=== PATIENT | male | born 1995 ===

== ENCOUNTER 2017-11-05 21:22 | Emergency (ER) | payer BC ==
[2017-11-05 21:38] VITALS: BP 141/86
[2017-11-05] MEDS ORDERED: HYDROcodone/ACETAMIN 5-325 MG* 1 TAB PO ONE (22:56)
--- NOTE | 2017-11-05 22:59 | UC ---
Hand/Wrist HPI - HPI Summary HPI Summary: Patient is 21 year old male , without any significant past medical history who present today with right middle finger injury today. He was playing flag foot ball when his finger jot jammed. After which he came in for evaluation. FInger is twisted and painful . No other symptoms. - History Of Current Complaint Chief Complaint: UCUpperExtremity Stated Complaint: FINGER INJURY Time Seen by Provider: 11/05/17 22:33 Hx Obtained From: Patient Pain Intensity: 4 - Allergies/Home Medications Allergies/Adverse Reactions: Allergies Allergy/AdvReac Type Severity Reaction Status Date / Time No Known Allergies Allergy Verified 11/05/17 21:38 Home Medications: Home Medications NK [No Home Medications Reported] 11/05/17 [History Confirmed 11/05/17] PMH/Surg Hx/FS Hx/Imm Hx Previously Healthy: Yes Other Endocrine History: negative Other Cardiovascular History: negative Other Respiratory History: negative Other GI/ History: negative Other Neurological History: negative Other Psychological History: negative Other Cancer History: negative - Surgical History Surgical History: Yes Surgery Procedure, Year, and Place: cyst removal, mole removal - Family History Known Family History: Positive: Hypertension - Social History Alcohol Use: Weekly Alcohol Amount: 3/WEEK Substance Use Type: None Smoking Status (MU): Never Smoked Tobacco Have You Smoked in the Last Year: No Review of Systems Constitutional: Negative Skin: Negative Eyes: Negative ENT: Negative Respiratory: Negative Cardiovascular: Negative Gastrointestinal: Negative Genitourinary: Negative Motor: Negative Neurovascular: Negative Musculoskeletal: Decreased ROM - right 3rd middle finger, Edema - right 3rd middle finger, Other: - pain in middle phalanx of the right 3rd middle finger Neurological: Negative Psychological: Negative Is Patient Immunocompromised?: No All Other Systems Reviewed And Are Negative: Yes Physical Exam - Summary Physical Exam Summary: Physical Exam: Const: Appears well. No signs of apparent distress present. Alert and oriented x 3. Musculo: Walks with a normal gait. middle phalanx of the right 3rd middle finger: twisted /malrotation , tender to palpate at the middle phalanx. limited and painful ROM . Wrist is normal Head/Face: Atraumatic, normocephalic on inspection. Eyes: EOMI and PERRLA in both eyes. Conjunctivae clear. No discharge noted ENT: Hearing normal, TM normal appearing bilaterally . Respiratory: Respirations are unlabored. Lungs clear to auscultation bilaterally, no wheezing , rhonchi or rales noted . CVS: Regular rate and Rhythm, S1S2 normal , no murmurs identified. Extremities: Peripheral circulation is grossly normal. Pulses 2+ Abdomen : Soft non tender , nondistended , Bowel sounds present . No guarding , rebound tenderness or rigidity noted. Skin: No lesions or rash located on the upper extremities or on the lower extremities. Neuro: Cranial nerves II to XII intact, motor and sensory intact. DTR Intact bilaterally. Mood is normal. Affect is normal. Triage Information Reviewed: Yes Vital Signs: Initial Vital Signs Temp 99.1 F 11/05/17 21:34 Pulse 66 11/05/17 21:34 Resp 21 11/05/17 21:34 BP 141/86 11/05/17 21:34 Pulse Ox 96 11/05/17 21:34 Vital Signs Reviewed: Yes Diagnostics - Radiology hand Xray Interpretation: Positive (See Comments) - Communited / spiral fracture of the middle phalanx of the right 3rd middle finger Radiology Interpretation Completed By: ED Physician Hand/Wrist Course/Dx - Course Course Of Treatment: During the visit today, we obtained X-rays of the right middle finger which demonstrated a spiral/comminuted fracture of the middle phalanx( final report not available yet) . We discussed the findings and further plan. Splint applied to the finger. He was gven 1 dose of norco for pain control .He will see the hand surgeon/orthopedics tomorrow. Patient expressed understanding . - Differential Dx/Diagnosis Provider Diagnoses: Right middle finger fracture Discharge - Sign-Out/Discharge Documenting (check all that apply): Patient Departure All imaging exams completed and their final reports reviewed: No - Discharge Plan Condition: Stable Disposition: HOME Patient Education Materials: Finger Fracture (ED) Referrals: Koby Sun MD [Primary Care Provider] - Clem Perkins MD [Medical Doctor] - 1 Day Additional Instructions: Pain control as needed . Please follow up with orthopedics/hand surgeon tomorrow. Return to Urgent care / ER if symptoms get worse. - Billing Disposition and Condition Condition: STABLE Disposition: Home
--- NOTE | 2017-11-06 07:55 | RAD ---
Indication: Right middle finger pain. 3 views of the right middle finger demonstrates comminuted spiral fracture of the middle phalanx. Soft tissue swelling is noted. IMPRESSION: Spiral fracture middle phalanx third digit.
--- NOTE | 2017-11-06 08:52 | UC ---
- EKG/XRAY/CT XRAY: finger Xray Comments: wet read correct Discharge - Sign-Out/Discharge Documenting (check all that apply): Post-Discharge Follow Up All imaging exams completed and their final reports reviewed: Yes - Discharge Plan Condition: Stable Disposition: HOME Patient Education Materials: Finger Fracture (ED) Referrals: Koby Sun MD [Primary Care Provider] - Clem Perkins MD [Medical Doctor] - 1 Day Additional Instructions: Pain control as needed . Please follow up with orthopedics/hand surgeon tomorrow. Return to Urgent care / ER if symptoms get worse. - Billing Disposition and Condition Condition: STABLE Disposition: Home
== END 2017-11-05 23:10 | disposition home or self-care (01) ==
LOC: UCEAST 21:22
DX: S62.652A Nondisplaced fracture of middle phalanx of right middle finger, initial encounter for closed fracture (principal); W23.0XXA Caught, crushed, jammed, or pinched between moving objects, initial encounter; Y93.61 Activity, american tackle football; Y92.9 Unspecified place or not applicable
CPT/HCPCS: 73140; 99212; G0463

== ENCOUNTER → 2017-11-09 15:13 | Day surgery (SDC) | payer BC ==
[~2017-11-09 15:13] MED LIST: Buffered Lidocaine 0.9% SYRIN* 5 ML/SYR SYRINGE INTRADERM ONE; Dexamethasone IV* 4 MG/ML 1 ML (4 MG) IV SLOW PU ONE; Dexamethasone IV* 4 MG/ML 1 ML (4 MG) ONE; Famotidine IV* 10 MG/ML 2 ML (20 mg) IV ONE; Famotidine IV* 10 MG/ML 2 ML (20 mg) ONE; Midazolam* 1 MG/ML 2 ML VIAL (2 MG) ONE; ceFAZolin 2 GM in NS PREMIX(*) 2 GM/100 ML BAG IVPB ONE; fentaNYL* 50 MCG/ML 2 ML VIAL (100 MCG VIAL) ONE
[2017-11-10 07:00] VITALS: BP 129/84
--- NOTE | 2017-11-10 14:25 | RAD ---
INDICATION: ORIF RIGHT middle finger middle phalanx. Technique: 33 seconds of?fluoroscopy?was provided?for the physician proceduralist. REPORT: Spot images document placement of percutaneous fixation wires across the oblique nonarticular fracture of the middle phalanx. Anatomic alignment. IMPRESSION: Procedural control films. CPT II Codes: G9500
--- NOTE | 2017-11-10 15:11 | OP ---
DATE OF OPERATION: 11/09/17 - [facility] DATE OF : [birth year] SURGEON: Clem Perkins MD BOARD MACHINE SET UP OPERATOR: MAGDALENA Callahan. An executive marketing assistant was needed for the procedure to aid in positioning of the hand and holding the reduction, while I placed the instrumentation. ANESTHESIOLOGIST: Dr. Tillman. ANESTHESIA: Local MAC. PRE-OP DIAGNOSIS: Right middle finger highly displaced middle phalanx fracture. POST-OP DIAGNOSIS: Right middle finger highly displaced middle phalanx fracture. OPERATIVE PROCEDURE: Closed reduction and percutaneous pinning of right middle finger displaced middle phalanx fracture. INDICATIONS: Lucio is 21. He fractured the middle phalanx. It was 90 degrees rotated. We had talked to him about risks and benefits including the risk of pin tract infection, the risk of loss of fixation. He had wanted to proceed. ESTIMATED BLOOD LOSS: 1 mL. COMPLICATIONS: None. FINDINGS: See above and below. DESCRIPTION OF PROCEDURE: Lucio was seen in the preoperative holding area. The correct site, side, and procedure were identified. We came back to the operating room where the arm was prepped and draped in the usual fashion. I had performed a digital block with 0.5% ropivacaine prior to prepping and draping. Time-out was performed. I performed a closed reduction maneuver. There was little click and then I felt the bone reduced. I confirmed this on mini C-arm fluoroscopy on the AP and lateral views. I then placed 2 pins traversing the fracture, one was 1.0- mm pin, placed from distal radial to proximal ulnar. I then placed a 0.8-mm pin just distal to that, again from distal radial to proximal ulnar. The alignment was confirmed on AP and lateral mini C-arm fluoroscopic imaging. Everything was looking good. So, the pins were bent and clipped. They were dressed with Xeroform, well padded with 4x4s, one inch Jaxson was placed and then a clamshell AlumaFoam splint was placed, and secured with Coban and tape. Tourniquet was not used for the procedure. He was then taken to the recovery room in stable condition. [id number]/[id number] #: [id number] [facility]
== END | disposition home or self-care (01) ==
LOC: OREAST 15:13
PROVIDERS: ATTEND Orthopaedic Surgery Hand Surgery
DX: S62.622A Displaced fracture of middle phalanx of right middle finger, initial encounter for closed fracture (principal); X58.XXXA Exposure to other specified factors, initial encounter; Y93.79 Activity, other specified sports and athletics; Y92.9 Unspecified place or not applicable
CPT/HCPCS: 76000; C1776; J0690; J1100; J2250; J3010